=== PATIENT | female | born 1945 | race African-American/Black ===

== ENCOUNTER 2017-03-12 09:28 | Emergency (ER) | payer MEDICARE, MEDICAID ==
[~2017-03-12] VITALS: Ht 162.6 cm; Wt 114.0 kg
[~2017-03-12 09:28] MED LIST: ACET-2178 PO; ALBU2.5V13 NEB; CALC667C PO; CALCIUM ACETATE PO; CARV6.2548 PO; CINA30 PO; CLON0.1T PO; CLOP75TA16 PO; DEXT15DR5 EACHEYE; DIPH25CA83 PO; ENAL2.5T PO; ENAL5TAB75 PO; OMEP20CA10 PO; PREG75CA PO; SENN-22 PO; SEVE800T8 PO; SULF-165 PO; ZOLP5TAB2 PO
[2017-03-12 10:22] LABS: BASOPHILS % 1.4 % (0.0-2.0); EOSINOPHILS % 1.5 % (0.0-5.0); HEMATOCRIT. 31.5 % (36.0-48.0); LYMPHOCYTES % 11.2 % (20.0-50.0); MEAN CORPUSCULAR HEMOGLOBIN 30.6 pg (28.0-32.0); MEAN CORPUSCULAR VOLUME 96.9 fL (81.0-99.0); MEAN PLATELET VOLUME 9.6 fl (7.4-10.4); MONOCYTES % 6.6 % (2.0-8.0); NEUTROPHILS % 79.3 % (40.0-76.0); PLATELET 172 x1000/uL (130-400); RED BLOOD CELL COUNT 3.25 mill/uL (4.2-5.4); RED CELL DISTRIBUTION WIDTH 14.5 % (11.6-14.6)
[2017-03-12 10:26] LABS: INR 1.1; PROTHROMBIN TIME 11.4 sec (9.4-11.6)
[2017-03-12 10:35] LABS: TROPONIN I 0.04 ng/mL (0.00-0.04)
[2017-03-12 14:19] VITALS: BP 101/61
== END 2017-03-12 14:22 | disposition home or self-care (01) ==
LOC: ER 10:13
DX: R06.00 Dyspnea, unspecified (principal); K21.9 Gastro-esophageal reflux disease without esophagitis; I13.2 Hypertensive heart and chronic kidney disease with heart failure and with stage 5 chronic kidney disease, or end stage renal disease; I50.9 Heart failure, unspecified; N18.6 End stage renal disease; E05.90 Thyrotoxicosis, unspecified without thyrotoxic crisis or storm; J44.9 Chronic obstructive pulmonary disease, unspecified; F03.90 Unspecified dementia, unspecified severity, without behavioral disturbance, psychotic disturbance, mood disturbance, and anxiety; E11.9 Type 2 diabetes mellitus without complications; E78.00 Pure hypercholesterolemia, unspecified; Z99.2 Dependence on renal dialysis
CPT/HCPCS: 36415; 71010; 80048; 83880; 84484; 85025; 85610; 93005; 99285